=== PATIENT | female | born 1980 | race Caucasian/White ===

== ENCOUNTER 2018-04-12 22:07 | Emergency (ER) | payer BC, OTHER, SELFPAY | END 2018-04-12 22:30 | disposition home or self-care (01) | LOC: SCSER 22:07 | DX: S20.219A Contusion of unspecified front wall of thorax, initial encounter (principal); S00.81XA Abrasion of other part of head, initial encounter; S00.511A Abrasion of lip, initial encounter; S50.311A Abrasion of right elbow, initial encounter; S50.812A Abrasion of left forearm, initial encounter; F17.210 Nicotine dependence, cigarettes, uncomplicated; Z71.6 Tobacco abuse counseling; V19.9XXA Pedal cyclist (driver) (passenger) injured in unspecified traffic accident, initial encounter | CPT/HCPCS: 99406 ==